=== PATIENT | female | born 1935 | race Caucasian/White ===

== ENCOUNTER 2017-04-26 12:31 | Outpatient (CLI) | payer MEDICARE, OTHER ==
--- NOTE | 2017-04-26 15:54 | XRAY Report ---
TWO VIEW NECK SOFT TISSUES: 04/26/2017 CLINICAL INDICATION: Pain. FINDINGS: Frontal and lateral views of the neck soft tissues demonstrate no evidence of abnormal gas collection or radiopaque foreign body. Mild degenerative changes are noted in the lower cervical spine. IMPRESSION: NORMAL NECK SOFT TISSUES. TD: 04/26/2017 15:53
== END 2017-04-26 12:32 | disposition home or self-care (01) ==
LOC: DI 12:31
PROVIDERS: ATTEND Internal Medicine
DX: M54.2 Cervicalgia (principal)
CPT/HCPCS: 70360

== ENCOUNTER 2017-12-06 12:55 | Outpatient (CLI) | payer MEDICARE, OTHER ==
--- NOTE | 2017-12-09 14:45 | Mammography Report ---
Reason: SCREENING MAMMO Procedure Date: 12/06/2017 Accession Number: [id number] / [id number] Procedure: [facility] - Screening Mammo w/Shaka CPT Code: FULL RESULT: EXAM: Screening Mammo w/Shaka DATE: 12/06/2017 1:21 PM CLINICAL HISTORY: Routine screening TECHNIQUE: Bilateral CC and MLO views were obtained. COMPARISON: 01/23/2016, 09/25/2013, 07/17/2011 and 02/21/2010 FINDINGS: The breast tissue is heterogeneously dense. No significant new findings. No suspicious masses, clustered microcalcifications, or regions of architectural distortion are identified. IMPRESSION: Negative. RECOMMENDATION: Routine annual screening unless otherwise clinically indicated. BIRADS CATEGORY 1: Negative STANDARD QUALIFYING STATEMENTS: 1. This examination was not reviewed with the aid of Computer-Aided Detection (CAD). 2. A negative or benign imaging report should not delay biopsy if clinically suspicious findings are present. Consider surgical consultation if warrented. More than 5% of cancers are not identified by imaging. 3. Dense breasts may obscure an underlying neoplasm. 4. This examination was reviewed the aid of 3D breast imaging (tomosynthesis).
== END 2017-12-06 12:56 | disposition home or self-care (01) ==
LOC: DI 12:55
PROVIDERS: ATTEND Internal Medicine
DX: Z12.31 Encounter for screening mammogram for malignant neoplasm of breast (principal)
CPT/HCPCS: 77063; 77067

== ENCOUNTER 2019-03-03 10:04 | Emergency (ER) | payer MEDICARE, OTHER ==
--- NOTE | 2019-03-03 11:36 | ED Physician Documentation ---
PD HPI HEAD INJURY - Stated complaint Stated Complaint: FELL/HEAD INJ - Chief complaint Chief Complaint: Trauma Hd/Nk - History obtained from History obtained from: Patient - History of Present Illness Mechanism of head injury: Fell Where head injury occurred: Other (at a store - was at work at [employer] and felt some cramping lower abd pains, with feeling of having to go to bathroom. Went to bathroom and had large diarrheal movement (no noted blood nor melena) and felt some lightheaded as she stood up after done. Fainted and fell, striking back of head. Person in next stall asked if she was okay and patient remembers that, so not long LOC. Having local pain at area of contusion/swelling and mild headache. No nausea, no visual change, no confusion nor ataxia. Has not had any further lightheadedness nor near syncope. She states she had not had much to eat/drink prior to episode.) Timing - onset: Yesterday Location of injury: Back Quality of pain: Pain, Aching, Dull Associated symptoms: No: AMS, Nausea / vomiting, Neck pain, Paresthesias Symptoms worsen with: Palpation Contributing factors: No: Anticoagulated, Intoxicated Similar symptoms before: Has not had sx before Review of Systems Constitutional: denies: Fever, Chills, Myalgias Eyes: denies: Loss of vision, Decreased vision Nose: denies: Rhinorrhea / runny nose, Congestion Throat: denies: Sore throat Cardiac: denies: Chest pain / pressure, Palpitations Respiratory: denies: Dyspnea, Cough GI: reports: Abdominal Pain (just that brief episode yesterday prior to single diarrheal movement.). 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 HEENT: Tonsil/Adenoidectomy Derm: Skin cancer surgery - Present Medications Home Medications: Ambulatory Orders Medication Instructions Recorded Confirmed Felodipine [Felodipine ER] 5 mg PO 01/13/13 01/13/13 Hydrochlorothiazide 25 mg PO 01/13/13 01/13/13 Ranitidine HCl [Acid Control] 75 mg PO 01/13/13 01/13/13 Simvastatin [Zocor] 20 mg PO QPM 01/13/13 01/13/13 Dicyclomine [Bentyl] 20 mg PO ONCE 04/08/13 04/08/13 lisinopriL [Lisinopril] 5 mg PO 04/08/13 04/08/13 - Allergies Allergies/Adverse Reactions: Allergies Allergy/AdvReac Type Severity Reaction Status Date / Time venom-honey bee Allergy Intermediate Edema Verified 01/13/13 13:13 [bee venom (honey bee)] PD ED PE NORMAL - Vitals Vital signs reviewed: Yes - General General: Alert and oriented X 3, No acute distress, Well developed/nourished - HEENT HEENT: PERRL, EOMI, Moist mucous membranes, Other (right occipital head contu [place] with local swelling and tender. No lacerations. Neck with slight tenderness to right lateral aspect. ROM with slight pain. 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 ), See rad report PD MEDICAL DECISION MAKING - ED course Complexity details: considered differential (sounds like simple syncope and has felt well since, except for head contusion. She says had appt with PMD later this week and had had basic blood tests last week in prep for it. Had labs through [facility] ), d/w patient Departure - Departure Disposition: 01 Home, Self Care Clinical Impression: Episode of syncope Qualifiers: Syncope type: vasovagal syncope Qualified Code(s): R55 - Syncope and collapse Head contusion Qualifiers: Encounter type: initial encounter Contusion of head detail: scalp Qualified Code(s): S00.03XA - Contusion of scalp, initial encounter Condition: Stable Record reviewed to determine appropriate education?: Yes Instructions: ED Contusion Scalp, ED Syncope Vasovagal Follow-Up: Jessie Catherine MD [Primary Care Provider] - Comments: Your fainting episode does sound like a vasovagal episode related to the cramps diarrhea and position. Follow-up with your primary care regarding the blood tests you had recently. Your scan of the head and neck did not show any acute injuries. You will still have likely some headache and the bruising on the scalp for several days or so. Recheck if worsening headache, confusion, off balance, other symptoms. Use anti-inflammatory such as ibuprofen or naproxen twice daily and add Tylenol 4 times a day if needed for pain. Discharge Date/Time: 03/03/19 14:08
[2019-03-03] MEDS ORDERED: ACETAMINOPHEN 325 MG TABLET PO STA (11:59)
[2019-03-03 13:07] VITALS: BP 121/87
--- NOTE | 2019-03-03 13:19 | CT Report ---
Reason: fall; head injury Procedure Date: 03/03/2019 Accession Number: [id number] / [id number] Procedure: CT - HEAD WO CPT Code: Final Report FULL RESULT: EXAM: CT HEAD EXAM DATE: 03/03/2019 12:55 PM. CLINICAL HISTORY: 83-year-old woman with head injury status post fall. COMPARISON: HEAD 07/30/2008 2:44 PM. TECHNIQUE: Multiaxial CT images were obtained from the foramen magnum to the vertex. Reformats: Sagittal and coronal. IV contrast: None. In accordance with CT protocol optimization, one or more of the following dose reduction techniques were utilized for this exam: automated exposure control, adjustment of mA and/or KV based on patient size, or use of iterative reconstructive technique. FINDINGS: Parenchyma: No evidence of acute infarct, hemorrhage, or mass lesion. Hypoattenuation in the bifrontal periventricular white matter and anterior internal capsules, right side greater than left, is unchanged from the 2008 exam and most consistent with remote ischemic insults. Ventricles and Extra-axial Spaces: Ventricles are symmetric and normal in size. No extra-axial hemorrhage or fluid collection. Orbits: Unremarkable except for bilateral lens placement surgery. Sinuses: Paranasal sinuses and mastoid air cells are clear. Extracranial Soft Tissues and Bones: Soft tissues are unremarkable. No fractures. IMPRESSION: 1. No acute intracranial abnormality. Specifically, no intracranial hemorrhage or fracture. RADIA
--- NOTE | 2019-03-03 13:31 | CT Report ---
Reason: fall with head/neck injury Procedure Date: 03/03/2019 Accession Number: [id number] / [id number] Procedure: CT - CERVICAL SPINE WO CPT Code: Final Report FULL RESULT: EXAM: CT CERVICAL SPINE WITHOUT CONTRAST DATE: 03/03/2019 12:55 PM. HISTORY: Fall with head/neck injury. COMPARISONS: CT head without contrast 03/03/2019.. TECHNIQUE: Thin-section axial images were acquired of the cervical spine without contrast. Post-processing: Coronal and sagittal reformats. Other: None. In accordance with CT protocol optimization, one or more of the following dose reduction techniques were utilized for this exam: automated exposure control, adjustment of mA and/or KV based on patient size, or use of iterative reconstructive technique. FINDINGS: Alignment: No scoliosis or spondylolisthesis. Bones: Negative for odontoid fracture. Negative for atlas fracture. Cervical vertebral bodies are negative for fracture. Cervical facets male mental Interspace Levels/Facets: C1-C2: Unremarkable. C2-C3: Unremarkable. C3-C4: Mild bilateral facet joint arthrosis. Negative for central spinal canal stenosis. C4-C5: Preservation of disk height. Mild left facet joint arthrosis. Negative for spinal canal or foraminal stenosis. C5-C6: Severe disk degeneration. Posterior osteophytosis. Mild central spinal canal stenosis. Mild bilateral foraminal stenosis from Luschka joint degenerative hypertrophic spurring. C6-C7: Severe disk degeneration. Mild central spinal canal stenosis. Posterior 2 mm disk protrusion osteophyte complex. Moderate left and mild right foraminal stenosis from Luschka joint degenerative hypertrophic spurring. Bilateral facet degenerative changes. C7-T1: Anterolisthesis 2 mm C7 on T1. Moderate bilateral facet joint arthrosis. Negative for spinal canal stenosis or foraminal stenosis. Musculature: Normal. No fatty atrophy. Other: The paravertebral and prevertebral soft tissues are unremarkable. The lung apices are clear. IMPRESSION: CT of the spine from the foramen magnum to T2-T3 is negative for fracture. RADIA
== END 2019-03-03 14:08 | disposition home or self-care (01) ==
LOC: ED 10:04
DX: R55 Syncope and collapse (principal); S00.03XA Contusion of scalp, initial encounter; I10 Essential (primary) hypertension
CPT/HCPCS: 70450; 72125; 99284; A9270

== ENCOUNTER 2020-04-29 12:07 | Outpatient (CLI) | payer MEDICARE, OTHER ==
--- NOTE | 2020-04-29 13:30 | XRAY Report ---
PROCEDURE: Chest 2 View X-Ray INDICATIONS: CHEST PAIN TECHNIQUE: 2 view(s) of the chest. COMPARISON: None. FINDINGS: Surgical changes and devices: None. Lungs and pleura: No pleural effusions or pneumothorax. Lungs are clear. Mediastinum: Mediastinal contours are normal. Heart size is normal. Bones and chest wall: No suspicious bony abnormalities. Soft tissues appear unremarkable. IMPRESSION: No acute disease. Reviewed by: Damion Hilton MD on 04/29/2020 1:29 PM PST Approved by: Damion Hilton MD on 04/29/2020 1:29 PM PST Station ID: [id number]
== END 2020-04-29 12:08 | disposition home or self-care (01) ==
LOC: DI.N 12:07
PROVIDERS: ATTEND Internal Medicine
DX: R07.9 Chest pain, unspecified (principal)

== ENCOUNTER 2021-02-07 09:31 | Outpatient (CLI) | payer MEDICARE, OTHER ==
--- NOTE | 2021-02-08 14:22 | Mammography Report ---
BILATERAL DIGITAL SCREENING MAMMOGRAM 3D/2D: 02/07/2021 CLINICAL: Routine screening. Comparison is made to exams dated: 10/29/2019 mammogram - [facility], 12/06/2017 mammogram, 01/22 mammogram, 09/25/2013 mammogram, and 07/17/2011 mammogram - [facility]. The tis [place] of both breasts is heterogeneously dense. This may lower the sensitivity of mammography. There are benign calcifications in both breasts. No significant masses, calcifications, or other findings are seen in either breast. There has been no significant interval change. IMPRESSION: BENIGN There is no mammographic evidence of malignancy. A 1 year screening mammogram is recommended. This exam was interpreted at Station ID: [id number]. NOTE: For mammograms, a report in lay terms will be sent to the patient. Approximately 15% of breast malignancies will not be visualized mammographically. In the management of a palpable breast mass, a negative mammogram must not discourage biopsy of a clinically suspicious lesion. Electronically Signed By: Nita bishop/jessica:02/07/2021 12:02:34 ACR BI-RADS Category 2: Benign Finding(s) 3342F PARENCHYMAL PATTERN: (D) - The breast(s) demonstrate(s) heterogeneously dense fibroglandular mayuri tovar. BI-RADS CATEGORY: (2) - 2 RECOMMENDATION: (ANNUAL) - Recommend routine annual screening mammography. [id number] 1 year screening LATERALITY: (B)
== END 2021-02-07 09:32 | disposition home or self-care (01) ==
LOC: DI.N 09:31
PROVIDERS: ATTEND Internal Medicine
DX: Z12.31 Encounter for screening mammogram for malignant neoplasm of breast (principal)